=== PATIENT | male | born 1970 | race Caucasian/White ===

== ENCOUNTER 2021-02-28 12:10 | Outpatient (REF) | payer MEDICARE, BC, SELFPAY ==
--- NOTE | 2021-02-28 16:00 | MHC.AU.ANO ---
Adult Audiological Evaluation Date of Visit: 02/28/21 Reason for Appointment: Audiological evaluation to monitor the status of Mr. La's hearing. He uses a known ototoxic medication, Azithromycin, three times weekly due to severe lung problems related to Bronchiectasis. He has been using Azithromycin for ~4 years, and his dosage was recently decreased from 500 mg on Sunday, Sunday, Sunday, to 250 mg on Sunday, Sunday, Sunday. He switched from Lexapro to Zoloft as well. Changes in medication and dosage were due to a recent EKG that indicated prolonged QT C, which has since normalized with these medication changes. He denies any other changes to his medical history. He feels he hears well and hasn't noticed any changed to his hearing. Does patient feel they have a hearing loss?: No Has hearing been tested previously?: Yes Previous Hearing Test Results: [facility] [place], 01/17/2019 - Normal hearing bilaterally. Reduced OAEs at 8000 Hz bilaterally, normal OAEs 0277-0248 Hz. 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 Patient reports that he typically gets 6-7 lung infections a year. Hemoptysis Medication List: Advair 230 mcg-21 mcg 2 puffs inhalation 2x daily, Albuterol 90mcg/inhalation 2 puffs every 4 hours PRN, Dallresp 500 mcg daily, escitalopram 20 mg, Hyper-Tc 7% 1 inhalation 2x daily, Levalbuterol 1.25mg/3mL inhalation 4x daily, methylprednisolone 4mg daily, Montelukast 10 mg daily, Ibuprofen 400 mg 2x daily, Mucinex 600mg/60mg every 12 hours, Sodium Chloride 7% inhalation solution via nebulizer 4x daily as directed, triamcinolone 55 mcg/inh nasal spray daily, Zithromax 250 mg Mondays, Wednesdays, Fridays Otoscopy: Right Ear: Unremarkable Left Ear: Unremarkable Tympanometry: Tympanometry performed due to: To assess integrity of the middle ear system Right Ear: Normal Middle Ear System (Type A) Left Ear: Normal Middle Ear System (Type A) Otoacoustic Emissions Frequency Range Used: 1.6-8 kHz Right Ear Results: Present from 1383-2875 Hz, reduced 8463-0320 Hz. Analysis: Present emissions suggest normal function in these cochlear regions. Reduced/Absent emissions suggest dysfunction in these cochlear regions. Left Ear Results: Present from 3918-7324 Hz, reduced 1439-9984 Hz. Analysis:Present emissions suggest normal function in these cochlear regions. Reduced/Absent emissions suggest dysfunction in these cochlear regions. Hearing Evaluation: Transducer(s) Used: Insert Earphones, Bone Conduction Method: Conventional Audiometry Stimuli Used: Pure Tones Right Ear: Description of Hearing: Normal hearing from 250-8000 Hz. Left Ear: Description of Hearing: Normal hearing from 250-8000 Hz. Speech Recognition Threshold (SRT): Method Used: Monitored Live Voice Stimuli Used: Spondee Words Right Ear: 5 dBHL Left Ear: 0 dBHL Word Discrimination: Method: Recorded Lists Word Lists Used: NU-6 Right Ear: 100% at 50 dBHL Left Ear: 100% at 50 dBHL Comparison: Compared to the most recent evaluation: Hearing is stable. Compared to most recent evaluation: Reduced otoacoustic emissions from 0071-2546 Hz bilaterally, which has worsened since 2019 when otoacoustic emissions were only reduced at 8000 Hz. Interpretation of Results: Reduced otoacoustic emissions may be related of the use of Azithromycin and suggests abnormal function in these cochlear regions. Reduced otoacoustic emissions may also be related to the natural aging of the auditory system and/or noise exposure. It is difficult to determine the exact cause of the reduced otoacoustic emissions. However, reduced OAEs have not yet led to a decrease in hearing sensitivity, and hearing remains normal bilaterally. Recommendations: Audiological re-evaluation in one year. Recommend continuing to monitor Mr. La's hearing on an annual basis due to reduced OAEs and continuing use of a potentially ototoxic medication. Diagnosis: Primary Diagnosis: H93.293 Abnormal Auditory Perception Services Performed: Pure Tone- Air (CPT 06196) Speech Audiometry Threshold, with Speech Recognition (CPT 91792) Diagnostic Otoacoustic Emissions (CPT 60851, 26+TC) Tympanometry (CPT 22223) Signature: Provider: Alma Delia Garcia, CCC-A
== END 2021-02-28 12:11 | disposition home or self-care (01) ==
LOC: HO.SH 12:10
PROVIDERS: Visit Provider Internal Medicine
DX: H93.293 Other abnormal auditory perceptions, bilateral (principal)
CPT/HCPCS: 92552; 92556; 92567; 92588

== ENCOUNTER 2022-08-28 09:36 | Outpatient (REF) | payer MEDICARE, BC, SELFPAY | END 2022-08-28 09:37 | disposition home or self-care (01) | LOC: HO.SH 09:36 | PROVIDERS: Visit Provider Internal Medicine Critical Care Medicine | DX: Z01.118 Encounter for examination of ears and hearing with other abnormal findings (principal); H93.293 Other abnormal auditory perceptions, bilateral | CPT/HCPCS: 92557; 92567; 92588 ==